=== PATIENT | male | born 1975 | race Two or more races ===

== ENCOUNTER 2017-06-20 15:53 | Emergency (ER) | payer SELFPAY ==
--- NOTE | 2017-06-20 16:09 | CPEKG ---
Heart Rate: 132 RR Interval: 455 P-R Interval: 128 QRSD Interval: 68 QT Interval: 292 QTC Interval: 433 P Peacham: 34 QRS Peacham: 17 T Wave Peacham: 1 EKG Severity - BORDERLINE ECG - EKG Impression: SINUS TACHYCARDIA EKG Impression: BORDERLINE T WAVE ABNORMALITIES Electronically Signed By: Carl Pereira 22-Jun-2017 06:46:54
[2017-06-20] MEDS ORDERED: NS 1,000 ML IV ONE ×3 (16:12→18:53)
[2017-06-20 16:15] VITALS: TEMP 98.2
[2017-06-20 16:15] LABS: PLATELET COUNT 280 10^3/uL (150-400)
[2017-06-20] MEDS ORDERED: ONDANSETRON 4 MG/2 ML VIAL ONE (16:21)
[2017-06-20] MEDS ORDERED: ONDANSETRON 4 MG/2 ML VIAL IVP ONE (16:32)
--- NOTE | 2017-06-20 16:51 | EDPHY ---
H & P Stated Complaint: CP SINCE THIS MORNING. ALSO N/V. PT REPORTS DRINKING 2 BTLS OF ALCOHOL YEST Time Seen by Provider: 06/20/17 16:03 HPI/ROS: 42 yo M presents c/o binge drinking the last few days, and now with anxiety, vomiting, unable to sleep. Some chest pain. He also complains of headache. While in the ED he had a large bloody bowel movement. No abdominal pain. Review of systems As per HPI General no fever no chills no weakness HEENT no eye pain no eye discharge. No eye redness, no sore throat Respiratory no cough, no shortness of breath Cardiac no chest pain, no peripheral edema GI no abdominal pain, no diarrhea, no constipation, positive nausea positive vomiting, positive hematochezia no flank pain, no hematuria, no dysuria Musculoskeletal no myalgias, no joint pain Heme no easy bruising, no easy bleeding Endo no polyuria, no polydipsia Skin no rashes, no pruritus Neuro no syncope, no dizziness, no headaches Positive anxiety, positive alcohol abuse Source: Patient, Family Exam Limitations: Clinical condition - Personal History Current Tetanus Diphtheria and Acellular Pertussis (TDAP): Yes - Medical/Surgical History Hx Asthma: No Hx Chronic Respiratory Disease: No Hx Diabetes: No Hx Cardiac Disease: No Hx Renal Disease: No Hx Cirrhosis: No Hx Alcoholism: No Other PMH: med hx-cholesterol,anxiety and insomnia. surg- - Family History Significant Family History: No pertinent family hx - Social History Smoking Status: Never smoked Alcohol Use: Heavy - Physical Exam Exam: 42-year-old male alert and oriented, tachycardic, anxious HEENT atraumatic normocephalic, extraocular muscles intact, anicteric Oropharynx negative for erythema negative exudate, tolerating her own secretions Neck supple no meningismus Lungs clear to auscultation bilaterally Heart rapid regular rate and rhythm approximately 135 initially Abdomen nondistended normoactive bowel sounds soft nontender Rectal-external hemorrhoid non thrombosed no active bleeding, rectal exam with a large amount of maroon stool Back no CVA tenderness, no step-offs, no spinal tenderness Extremities no cyanosis clubbing or edema Neuro alert and oriented, no focal deficits Constitutional: Initial Vital Signs Temperature (C) 36.8 C 06/20/17 16:13 Heart Rate 135 H 06/20/17 16:13 Respiratory Rate 18 06/20/17 16:13 Blood Pressure 141/88 H 06/20/17 16:13 O2 Sat (%) 93 06/20/17 16:13 O2 Delivery Mode Room Air O2 (L/minute) 2 Allergies/Adverse Reactions: No Known Allergies Allergy (Verified 06/20/17 16:19) Home Medications: Medication Instructions Recorded Omeprazole 06/20/17 Medical Decision Making - Diagnostics Imaging Results: Imaging Impressions Chest X-Ray 06/20/17 16:11 Impression: Stable negative chest.. ED Course/Re-evaluation: Patient seen and evaluated for feeling anxious, nausea vomiting after recent alcohol binge. Labs Potassium low at 3.2 Magnesium borderline 1.6 Alcohol less than 10 Lactate normal Hemoglobin 15 initially on repeat 14 Troponin within normal limits D-dimer negative Chest x-ray negative EKG sinus tachycardia 135 Patient given 3 L normal saline A total of Librium 50 mg Hydroxyzine 50 mg Lorazepam 1 mg Mag sulfate 1 g Potassium chloride 40 mEq Ondansetron a 4 mg Patient was initially feeling somewhat better after fluids and Zofran and then had a large bloody bowel movement. Impression Alcohol withdrawal Lower GI bleed Plan Continue hydration Admit to [facility], ICU Accepted by hospitalist, Dr Bey. - Data Points Laboratory Results: Laboratory Results 06/20/17 19:20 06/20/17 16:10 06/20/17 06/20/17 06/20/17 19:20 19:20 17:45 WBC RBC Hgb 14.2 g/dL g/dL (13.7-17.5) Hct 39.7 % L % (40.0-51.0) MCV MCH MCHC RDW Plt Count MPV Neut % (Auto) Lymph % (Auto) Allen % (Auto) Eos % (Auto) Baso % (Auto) Nucleat RBC Rel Count Absolute Neuts (auto) Absolute Lymphs (auto) Absolute Monos (auto) Absolute Eos (auto) Absolute Basos (auto) Absolute Nucleated RBC Immature Gran % Immature Gran # D-Dimer VBG Lactic Acid 1.0 mmol/L mmol/L (0.7-2.1) Sodium Potassium Chloride Carbon Dioxide Anion Gap BUN Creatinine Estimated GFR Glucose Calcium Magnesium Total Bilirubin AST ALT Alkaline Phosphatase Troponin I Total Protein Albumin Lipase TSH Urine Opiates Screen NEGATIVE (NEGATIVE) Urine Barbiturates NEGATIVE (NEGATIVE) Ur Phencyclidine Scrn NEGATIVE (NEGATIVE) Ur Amphetamine Screen NEGATIVE (NEGATIVE) U Benzodiazepines Scrn NON-NEGATIVE H (NEGATIVE) Urine Cocaine Screen NEGATIVE (NEGATIVE) U Marijuana (THC) Screen NEGATIVE (NEGATIVE) Ethyl Alcohol 06/20/17 06/20/17 06/20/17 16:10 16:10 16:10 WBC RBC Hgb Hct MCV MCH MCHC RDW Plt Count MPV Neut % (Auto) Lymph % (Auto) Allen % (Auto) Eos % (Auto) Baso % (Auto) Nucleat RBC Rel Count Absolute Neuts (auto) Absolute Lymphs (auto) Absolute Monos (auto) Absolute Eos (auto) Absolute Basos (auto) Absolute Nucleated RBC Immature Gran % Immature Gran # D-Dimer 0.30 ug/mLFEU ug/mLFEU (0.00-0.50) VBG Lactic Acid Sodium 136 mEq/L mEq/L (135-145) Potassium 3.2 mEq/L L mEq/L (3.5-5.2) Chloride 95 mEq/L L mEq/L (97-110) Carbon Dioxide 24 mEq/l mEq/l (22-31) Anion Gap 17 mEq/L H mEq/L (8-16) BUN 10 mg/dL mg/dL (7-23) Creatinine 1.0 mg/dL mg/dL (0.7-1.3) Estimated GFR > 60 Glucose 170 mg/dL H mg/dL (70-100) Calcium 8.5 mg/dL mg/dL (8.5-10.4) Magnesium 1.6 mg/dL mg/dL (1.6-2.3) Total Bilirubin 1.1 mg/dL mg/dL (0.1-1.4) AST 46 IU/L IU/L (17-59) ALT 91 IU/L H IU/L (21-72) Alkaline Phosphatase 89 IU/L IU/L (38-126) Troponin I 0.018 ng/mL ng/mL (0.000-0.034) Total Protein 7.0 g/dL g/dL (6.3-8.2) Albumin 3.5 g/dL g/dL (3.5-5.0) Lipase 76 IU/L IU/L (23-300) TSH 1.410 uIU/mL uIU/mL (0.465-4.680) Urine Opiates Screen Urine Barbiturates Ur Phencyclidine Scrn Ur Amphetamine Screen U Benzodiazepines Scrn Urine Cocaine Screen U Marijuana (THC) Screen Ethyl Alcohol < 10 mg/dL mg/dL (0-10) 06/20/17 16:10 WBC 10.68 10^3/uL H 10^3/uL (3.80-9.50) RBC 5.10 10^6/uL 10^6/uL (4.40-6.38) Hgb 15.5 g/dL g/dL (13.7-17.5) Hct 42.9 % % (40.0-51.0) MCV 84.1 fL fL (81.5-99.8) MCH 30.4 pg pg (27.9-34.1) MCHC 36.1 g/dL g/dL (32.4-36.7) RDW 12.5 % % (11.5-15.2) Plt Count 280 10^3/uL 10^3/uL (150-400) MPV 9.3 fL fL (8.7-11.7) Neut % (Auto) 80.1 % H % (39.3-74.2) Lymph % (Auto) 12.1 % L % (15.0-45.0) Allen % (Auto) 7.4 % % (4.5-13.0) Eos % (Auto) 0.0 % L % (0.6-7.6) Baso % (Auto) 0.1 % L % (0.3-1.7) Nucleat RBC Rel Count 0.0 % % (0.0-0.2) Absolute Neuts (auto) 8.56 10^3/uL H 10^3/uL (1.70-6.50) Absolute Lymphs (auto) 1.29 10^3/uL 10^3/uL (1.00-3.00) Absolute Monos (auto) 0.79 10^3/uL 10^3/uL (0.30-0.80) Absolute Eos (auto) 0.00 10^3/uL L 10^3/uL (0.03-0.40) Absolute Basos (auto) 0.01 10^3/uL L 10^3/uL (0.02-0.10) Absolute Nucleated RBC 0.00 10^3/uL 10^3/uL (0-0.01) Immature Gran % 0.3 % % (0.0-1.1) Immature Gran # 0.03 10^3/uL 10^3/uL (0.00-0.10) D-Dimer VBG Lactic Acid Sodium Potassium Chloride Carbon Dioxide Anion Gap BUN Creatinine Estimated GFR Glucose Calcium Magnesium Total Bilirubin AST ALT Alkaline Phosphatase Troponin I Total Protein Albumin Lipase TSH Urine Opiates Screen Urine Barbiturates Ur Phencyclidine Scrn Ur Amphetamine Screen U Benzodiazepines Scrn Urine Cocaine Screen U Marijuana (THC) Screen Ethyl Alcohol Medications Given: Discontinued Medications Acetaminophen (Tylenol) 1,000 mg PO EDNOW ONE Stop: 06/20/17 17:29 Last Admin: 06/20/17 17:56 Dose: 1,000 mg Chlordiazepoxide HCl (Librium) 25 mg PO EDNOW ONE Stop: 06/20/17 17:29 Last Admin: 06/20/17 17:56 Dose: 25 mg Chlordiazepoxide HCl (Librium) 25 mg PO EDNOW ONE Stop: 06/20/17 19:05 Last Admin: 06/20/17 19:27 Dose: 25 mg Hydroxyzine HCl (Hydroxyzine Hcl) 50 mg PO EDNOW ONE Stop: 06/20/17 18:52 Last Admin: 06/20/17 19:04 Dose: Not Given Hydroxyzine HCl (Hydroxyzine Hcl) 50 mg PO ONCE ONE Stop: 06/20/17 19:01 Last Admin: 06/20/17 19:02 Dose: 50 mg Sodium Chloride (Ns) 1,000 mls @ 0 mls/hr IV ONCE ONE PRN Reason: Wide Open Stop: 06/20/17 16:13 Last Admin: 06/20/17 16:33 Dose: 1,000 mls Sodium Chloride (Ns) 1,000 mls @ 0 mls/hr IV ONCE ONE PRN Reason: Wide Open Stop: 06/20/17 16:44 Last Admin: 06/20/17 17:21 Dose: 1,000 mls Magnesium Sulfate/Dextrose (Magnesium Sulf 1 Gm (Premix)) 100 mls @ 100 mls/hr IV EDNOW ONE Stop: 06/20/17 18:30 Last Admin: 06/20/17 17:56 Dose: 100 mls Sodium Chloride (Ns) 1,000 mls @ 0 mls/hr IV ONCE ONE PRN Reason: Wide Open Stop: 06/20/17 18:54 Last Admin: 06/20/17 19:06 Dose: 1,000 mls Ketorolac Tromethamine (Toradol) 30 mg IVP EDNOW ONE Stop: 06/20/17 17:32 Last Admin: 06/20/17 17:56 Dose: 30 mg Ondansetron HCl (Zofran) 4 mg IVP EDNOW ONE Stop: 06/20/17 16:33 Last Admin: 06/20/17 16:33 Dose: 4 mg Potassium Chloride (Klor-Con) 40 meq PO EDNOW ONE Stop: 06/20/17 18:11 Last Admin: 06/20/17 18:58 Dose: 40 meq Departure - Departure Disposition: Acute Care Hospital [facility] Clinical Impression: Alcohol withdrawal, Lower GI bleed Condition: Serious Referrals: ESTEFANIA ARGUELLES,. [Primary Care Provider] - As per Instructions
[2017-06-20] MEDS ORDERED: chlordiazePOXIDE 25 MG CAP PO ONE ×2 (17:28→19:04)
[2017-06-20] MEDS ORDERED: ACETAMINOPHEN 500 MG TAB PO ONE (17:28)
[2017-06-20] MEDS ORDERED: MAGNESIUM SULF 1 GM/DEXTROSE 100 ML IV ONE (17:31)
[2017-06-20] MEDS ORDERED: KETOROLAC 30 MG/1 ML SDV IVP ONE (17:31)
[2017-06-20] MEDS ORDERED: POTASSIUM CL 20 MEQ TAB PO ONE (18:10)
[2017-06-20] MEDS ORDERED: hydrOXYzine HCL 50 MG TAB PO ONE (18:51)
[2017-06-20] MEDS ORDERED: hydrOXYzine HCL 25 MG TAB ONE (18:53)
[2017-06-20] MEDS ORDERED: hydrOXYzine HCL 25 MG TAB PO ONE (19:00)
[2017-06-20] MEDS ORDERED: LORazepam 2 MG/ML INJ IVP ONE (19:35)
[2017-06-20 21:08] VITALS: RESP 18
[2017-06-20 22:37] VITALS: O2SAT 96
[2017-06-20 22:54] VITALS: BP 152/90; PULSE 108
== END 2017-06-20 22:45 | disposition short-term general hospital (02) ==
LOC: CED 15:53
DX: K92.2 Gastrointestinal hemorrhage, unspecified (principal); F10.239 Alcohol dependence with withdrawal, unspecified; E86.9 Volume depletion, unspecified
CPT/HCPCS: 71046-PO; 80053-PO; 80307-PO; 83605-PO; 83690-PO; 83735-PO; 84443-PO; 84484-PO; 85014-PO; 85018-PO; 85025-PO; 85378-PO; 96365; G0480; J1885; J2060; J2405; J3475

== ENCOUNTER 2018-01-13 12:22 | Emergency (ER) | payer OTHER ==
[2018-01-13] MEDS ORDERED: ONDANSETRON 4 MG/2 ML VIAL IVP ONE ×2 (12:46→15:21)
[2018-01-13] MEDS ORDERED: NS 1,000 ML IV ONE ×2 (12:47→14:41)
[2018-01-13] MEDS ORDERED: LORazepam 2 MG/ML INJ IVP ONE (13:01)
--- NOTE | 2018-01-13 13:01 | EDPHY ---
H & P Stated Complaint: Nausea, vomiting, ESTRADA, anxiety. Source: Patient, Family Exam Limitations: Intoxication, Language barrier - Personal History Current Tetanus Diphtheria and Acellular Pertussis (TDAP): Yes Tetanus Vaccine Date: within 10 years - Medical/Surgical History Hx Asthma: No Hx Chronic Respiratory Disease: No Hx Diabetes: No Hx Cardiac Disease: No Hx Renal Disease: No Hx Cirrhosis: No Hx Alcoholism: No Hx HIV/AIDS: No Hx Splenectomy or Spleen Trauma: No Other PMH: med hx-cholesterol,anxiety and insomnia. surg-denies - Social History Smoking Status: Never smoked Alcohol Use: Heavy Time Seen by Provider: 01/13/18 12:37 HPI/ROS: CHIEF COMPLAINT: Vomiting, withdrawal HISTORY OF PRESENT ILLNESS: Patient is a 43-year-old alcoholic man who comes to the emergency department after drinking for several days in a row. His last drink was about 16 hr ago. He is complaining of vomiting, headache, anxiety feelings. No tremor or tachycardia. He states that he is pacing the room. He has had trouble with withdrawal before. No or had a seizure. He does not suffer from anxiety a baseline. He is here requesting help for his nausea and vomiting and some medication to help with his withdrawal anxiety. His family is with him. Severity: Moderate Modifying factors: Alcohol REVIEW OF SYSTEMS: Constitutional: denies: chills, fever, recent illness, recent injury EENTM: denies: blurred vision, double vision, nose congestion Respiratory: denies: cough, shortness of breath Cardiac: denies: chest pain, irregular heart rate, lightheadedness, palpitations Gastrointestinal/Abdominal: denies: abdominal pain, diarrhea, nausea, vomiting, blood streaked stools Genitourinary: denies: dysuria, frequency, hematuria, pain Musculoskeletal: denies: joint pain, muscle pain Skin: denies: lesions, rash, jaundice, bruising Neurological: denies: headache, numbness, paresthesia, tingling, dizziness, weakness Hematologic/Lymphatic: denies: blood clots, easy bleeding, easy bruising Immunologic/allergic: denies: HIV/AIDS, transplant 10 systems reviewed and negative except as noted EXAM: GENERAL: Slightly disheveled, well-nourished and in no acute distress. HEAD: Atraumatic, normocephalic. EYES: Pupils equal round and reactive to light, extraocular movements intact, sclera anicteric, conjunctiva are normal. ENT: TMs normal, nares patent, oropharynx clear without exudates. Moist mucous membranes. NECK: Normal range of motion, supple without lymphadenopathy or JVD. LUNGS: Breath sounds clear to auscultation bilaterally and equal. No wheezes rales or rhonchi. HEART: Regular rate and rhythm without murmurs, rubs or gallops. ABDOMEN: Soft, nontender, normoactive bowel sounds. No guarding, no rebound. No masses appreciated. BACK: No CVA tenderness, no spinal tenderness, step-offs or deformities EXTREMITIES: Normal range of motion, no pitting or edema. No clubbing or cyanosis. NEUROLOGICAL: Cranial nerves II through XII grossly intact. Normal speech, normal gait. 5/5 strength, normal movement in all extremities, normal sensation , normal reflexes PSYCH: Normal mood, normal affect. SKIN: Warm, dry, normal turgor, no visible rashes or lesions. (Carlos Hidalgo) Constitutional: Initial Vital Signs Temperature (C) 37 C 01/13/18 12:43 Heart Rate 95 01/13/18 12:43 Respiratory Rate 18 01/13/18 12:43 Blood Pressure 137/89 H 01/13/18 12:43 O2 Sat (%) 94 01/13/18 12:43 O2 Delivery Mode Room Air O2 (L/minute) 2 Allergies/Adverse Reactions: No Known Allergies Allergy (Verified 01/13/18 12:45) Home Medications: Medication Instructions Recorded chlordiazePOXIDE [Librium 25 mg 50 - 100 mg PO Q6 PRN #20 cap 01/13/18 (*)] Medical Decision Making ED Course/Re-evaluation: This patient continued to have nausea and vomited once at around 3:30 p.m.. History of another dose of Zofran beside ongoing nausea and complained of a mild to moderate diffuse headache. He is then treated with Reglan, Benadryl and Tylenol with significant improvement in headache and resolution of his nausea. Encouraged him to stop drinking. He declined the alcohol recovery Center but his will assist with Librium at home with plan to reconsider alcohol recovery Center. He understands need to return emergency department should he develop any significant recurrence or worsening of symptoms-vomiting or other concerns. (Colby Pleitez) Patient is requesting help with his nausea vomiting and anxiety that he associates with withdrawal. He is not tremulous or tachycardic. I will treat him with fluids, Zofran and Ativan. I offered transfer to the [facility] recovery [facility] for continued treatment but he declines this. He states that he would prefer to go home and be with his family. He tells me he does not plan on drinking again. 2:45 p.m. the patient continues to feel much better but desaturates to the mid 80s if not on oxygen. We will continue to observe. I will transfer his care to Dr. Colby Pleitez at shift change. (Carlos Hidalgo) Differential Diagnosis: Partial list of the Differential diagnosis considered include but were not limited to; intoxication, alcohol withdrawal, and although unlikely based on the history and physical exam, I also considered infection, head trauma. ( Carlos Hidalgo) - Data Points Medications Given: Discontinued Medications Acetaminophen (Tylenol) 1,000 mg PO EDNOW ONE Stop: 01/13/18 16:08 Last Admin: 01/13/18 16:23 Dose: 1,000 mg Diphenhydramine HCl (Benadryl Injection) 12.5 mg IVP EDNOW ONE Stop: 01/13/18 16:08 Last Admin: 01/13/18 16:14 Dose: 12.5 mg Sodium Chloride (Ns) 1,000 mls @ 0 mls/hr IV ONCE ONE PRN Reason: Wide Open Stop: 01/13/18 12:48 Last Admin: 01/13/18 12:53 Dose: 1,000 mls Sodium Chloride (Ns) 1,000 mls @ 0 mls/hr IV ONCE ONE PRN Reason: Wide Open Stop: 01/13/18 14:42 Last Admin: 01/13/18 14:47 Dose: 1,000 mls Lorazepam (Ativan Injection) 1 mg IVP EDNOW ONE Stop: 01/13/18 13:02 Last Admin: 01/13/18 13:13 Dose: 1 mg Metoclopramide HCl (Reglan Injection) 5 mg IVP EDNOW ONE Stop: 01/13/18 16:07 Last Admin: 01/13/18 16:22 Dose: 5 mg Ondansetron HCl (Zofran) 4 mg IVP EDNOW ONE Stop: 01/13/18 12:47 Last Admin: 01/13/18 12:54 Dose: 4 mg Ondansetron HCl (Zofran) 4 mg IVP EDNOW ONE Stop: 01/13/18 15:22 Last Admin: 01/13/18 15:30 Dose: 4 mg Departure - Departure Disposition: Home, Routine, Self-Care Clinical Impression: Alcohol abuse Vomiting Qualifiers: Vomiting type: unspecified Vomiting Intractability: non-intractable Nausea presence: with nausea Qualified Code(s): R11.2 - Nausea with vomiting, unspecified Condition: Good Instructions: Chlordiazepoxide (By mouth), Abuse of Alcohol (ED) Additional Instructions: Diagnosis: Alcohol abuse 2. Vomiting Plan: Stop alcohol to help with Librium for withdrawal symptoms as needed. Consider the alcohol recovery Center to help stop drinking Return emergency department for any significant worsening despite the treatment plan Referrals: ESTEFANIA ARGUELLES [Other] - As per Instructions Prescriptions: chlordiazePOXIDE [Librium 25 mg (*)] 50 - 100 mg PO Q6 PRN #20 cap PRN Reason: alcohol withdrawal
[2018-01-13] MEDS ORDERED: METOCLOPRAMIDE 10 MG/2 ML VIAL IVP ONE (16:06)
[2018-01-13] MEDS ORDERED: ACETAMINOPHEN 500 MG TAB PO ONE (16:07)
[2018-01-13 17:22] VITALS: BP 133/98
== END 2018-01-13 17:07 | disposition home or self-care (01) ==
LOC: CED 12:22
DX: F10.10 Alcohol abuse, uncomplicated (principal); R11.2 Nausea with vomiting, unspecified
CPT/HCPCS: 96374; J1200; J2060; J2405; J2765

== ENCOUNTER 2018-04-26 19:19 | Emergency (ER) | payer SELFPAY ==
--- NOTE | 2018-04-26 19:36 | EDPHY ---
H & P Stated Complaint: migraine mason x 2 days, nausea Time Seen by Provider: 04/26/18 19:25 HPI/ROS: 43 yo M presents c/o headache for 2 days, he gets headaches relatively frequently, also with nausea, no trauma. No fever or chills and no neck pain. Patient denies difficulty with speech, and denies weakness in extremities. Review of systems As per HPI General no fever no chills no weakness HEENT no eye pain no eye discharge. No eye redness, no sore throat Respiratory no cough, no shortness of breath Cardiac no chest pain, no peripheral edema GI no abdominal pain, no diarrhea, no constipation, no nausea, no vomiting no flank pain, no hematuria, no dysuria Musculoskeletal no myalgias, no joint pain Heme no easy bruising, no easy bleeding Endo no polyuria, no polydipsia Skin no rashes, no pruritus Neuro no syncope, no dizziness, positive headaches Psych is no suicidal ideation, no homicidal ideation Source: Patient Exam Limitations: No limitations - Personal History Current Tetanus Diphtheria and Acellular Pertussis (TDAP): Yes Tetanus Vaccine Date: within 10 years - Medical/Surgical History Hx Asthma: No Hx Chronic Respiratory Disease: No Hx Diabetes: No Hx Cardiac Disease: No Hx Renal Disease: No Hx Cirrhosis: No Hx Alcoholism: Yes Hx HIV/AIDS: No Hx Splenectomy or Spleen Trauma: No Other PMH: med hx-cholesterol,anxiety and insomnia. surg-denies - Family History Significant Family History: No pertinent family hx - Social History Smoking Status: Never smoked Alcohol Use: Heavy Drug Use: None - Physical Exam Exam: 43-year-old male alert and oriented no acute distress nontoxic appearance, afebrile HEENT atraumatic normocephalic, extraocular muscles intact, anicteric Oropharynx negative for erythema negative exudate, tolerating her own secretions Neck supple no meningismus Lungs clear to auscultation bilaterally Heart regular rate and rhythm without murmur rub or gallop Abdomen nondistended normoactive bowel sounds soft nontender Back no CVA tenderness, no step-offs, no spinal tenderness Extremities no cyanosis clubbing or edema Neuro alert and oriented, no focal deficits Constitutional: Initial Vital Signs Temperature (C) 36.4 C 04/26/18 19:26 Heart Rate 77 04/26/18 19:26 Respiratory Rate 16 04/26/18 19:26 Blood Pressure 156/86 H 04/26/18 19:26 O2 Sat (%) 95 04/26/18 19:26 O2 Delivery Mode Room Air Allergies/Adverse Reactions: No Known Allergies Allergy (Verified 04/26/18 19:25) Home Medications: Medication Instructions Recorded NK [No Known Home Meds] 04/26/18 Medical Decision Making ED Course/Re-evaluation: Patient seen and evaluated for migraine headache. Given IV fluids, Reglan 10 mg, diphenhydramine 25 mg, Toradol 30 mg IV push BMP within normal limits except elevated glucose of 173 Normal creatinine, no acidosis Patient feeling markedly improved after medication. Impression Headache Dehydration Plan Discharge Follow-up with your primary Return as needed Differential Diagnosis: Differential diagnosis considered but not limited to: Tension headache, cluster headache, migraine headache, meningitis - Data Points Laboratory Results: 04/26/18 19:45 POC Sodium 136 mEq/L mEq/L (135-145) POC Potassium 3.4 mEq/L mEq/L (3.3-5.0) POC Chloride 109.0 mEq/L mEq/L (97-110) POC Total CO2 25 mEq/L mEq/L (22-31) POC BUN 14 mg/dL mg/dL (7-23) POC Creatinine 0.8 mg/dL mg/dL (0.7-1.3) POC Glucose 173 mg/dL H mg/dL (70-100) POC Calcium 8.8 mg/dL mg/dL (8.5-10.4) Medications Given: Discontinued Medications Diphenhydramine HCl (Benadryl Injection) 25 mg IVP EDNOW ONE Stop: 04/26/18 19:37 Last Admin: 04/26/18 19:49 Dose: 25 mg Sodium Chloride (Ns) 1,000 mls @ 0 mls/hr IV ONCE ONE PRN Reason: Wide Open Stop: 04/26/18 19:39 Last Admin: 04/26/18 19:48 Dose: 1,000 mls Ketorolac Tromethamine (Toradol) 30 mg IVP EDNOW ONE Stop: 04/26/18 19:42 Last Admin: 04/26/18 19:51 Dose: 30 mg Metoclopramide HCl (Reglan Injection) 10 mg IVP EDNOW ONE Stop: 04/26/18 19:38 Last Admin: 04/26/18 19:49 Dose: 10 mg Point of Care Test Results: Chemistry 04/26/18 19:45 POC Sodium 136 mEq/L mEq/L (135-145) POC Potassium 3.4 mEq/L mEq/L (3.3-5.0) POC Chloride 109.0 mEq/L mEq/L (97-110) POC Total CO2 25 mEq/L mEq/L (22-31) POC BUN 14 mg/dL mg/dL (7-23) POC Creatinine 0.8 mg/dL mg/dL (0.7-1.3) POC Glucose 173 mg/dL H mg/dL (70-100) POC Calcium 8.8 mg/dL mg/dL (8.5-10.4) Departure - Departure Disposition: Home, Routine, Self-Care Clinical Impression: Headache Condition: Good Instructions: Acute Headache (ED) Additional Instructions: If you continue to have headaches follow-up with your primary care doctor in the next 3-5 days. Referrals: ESTEFANIA ARGUELLES,. [Primary Care Provider] - As per Instructions
[2018-04-26] MEDS ORDERED: METOCLOPRAMIDE 10 MG/2 ML VIAL IVP ONE (19:37)
[2018-04-26] MEDS ORDERED: NS 1,000 ML IV ONE (19:38)
[2018-04-26] MEDS ORDERED: KETOROLAC 30 MG/1 ML SDV IVP ONE (19:41)
[2018-04-26 21:01] VITALS: BP 142/81
== END 2018-04-26 21:00 | disposition home or self-care (01) ==
LOC: CED 19:19
DX: R51 Headache (principal); E86.0 Dehydration; E78.00 Pure hypercholesterolemia, unspecified
CPT/HCPCS: 80048-PO; 96374; J1200; J1885; J2765